=== PATIENT | female | born 1960 | race Caucasian/White ===

== ENCOUNTER 2016-06-14 18:13 | Emergency (ER) | payer OTHER ==
[2016-06-14 18:41] VITALS: BP 125/76; PULSE 78; TEMP 98.8; BMI 27.8
--- NOTE | 2016-06-14 19:20 | PDOC ---
History of Present Illness - General Chief Complaint: Pain Stated Complaint: INJURY/EMPLOYEE Time Seen by Provider: 06/14/16 18:50 History Source: Patient Exam Limitations: No Limitations Past History - Past Medical History Allergies/Adverse Reactions: Allergies Allergy/AdvReac Type Severity Reaction Status Date / Time doxycycline calcium AdvReac Mild Nausea Verified 06/14/16 18:37 [From Vibramycin] doxycycline hyclate AdvReac Mild Nausea Verified 06/14/16 18:37 [From Vibramycin] doxycycline monohydrate AdvReac Mild Nausea Verified 06/14/16 18:37 [From Vibramycin] licorice AdvReac Severe Low Blood Uncoded 06/14/16 18:37 Pressure Home Medications: Ambulatory Orders No Home Medications 0 dose .ROUTE UTDICT 01/29/12 Levofloxacin [Levaquin -] 500 mg PO DAILY #10 tablet 07/29/15 Triamcinolone Acetonide [Nasacort] 55 mcg NS DAILY #10.8 ml 07/29/15 Other medical history: DENIES. - Immunization History Immunization Up to Date: Yes - Psycho/Social/Smoking Cessation Hx Anxiety: No Suicidal Ideation: No Smoking Status: No Smoking History: Never smoked Have you smoked in the past 12 months: No Number of Cigarettes Smoked Daily: 0 Hx Alcohol Use: No Drug/Substance Use Hx: No Substance Use Type: None *Physical Exam - Vital Signs Last Vital Signs Temp Pulse Resp BP Pulse Ox 98.8 F 78 19 125/76 97 06/14/16 18:37 06/14/16 18:37 06/14/16 18:37 06/14/16 18:37 06/14/16 18:37 ED Treatment Course - RADIOLOGY Radiology Studies Ordered: Category Date Time Status HAND- LEFT [RAD] Stat Radiology 06/14/16 18:51 Taken *DC/Admit/Observation/Transfer Diagnosis at time of Disposition: Fracture of left hand Qualifiers: Encounter type: initial encounter Fracture type: closed Qualified Code(s): S62.92XA - Unspecified fracture of left wrist and hand, initial encounter for closed fracture - Discharge Dispostion Disposition: HOME Condition at time of disposition: Stable Admit: No - Referrals Referrals: Akila León MD [Primary Care Provider] - Carlos A Jones MD [Staff Physician] - - Patient Instructions Additional Instructions: please see dr jones this week; call for appointment; wear splint
== END 2016-06-14 19:39 | disposition home or self-care (01) ==
LOC: JERFT 18:13
PROC: 2W39X1Z Immobilization of Left Upper Extremity using Splint (ICD-10-PCS; principal; 2016-06-14)
DX: S62.92XA Unspecified fracture of left hand, initial encounter for closed fracture (principal); X58.XXXA Exposure to other specified factors, initial encounter; Y93.9 Activity, unspecified; Y92.238 Other place in hospital as the place of occurrence of the external cause; Y99.0 Civilian activity done for income or pay
CPT/HCPCS: 73130-TC-LT; 99281-25

== ENCOUNTER 2016-07-18 21:46 | Emergency (ER) | payer OTHER ==
[2016-07-18 22:15] VITALS: BP 118/82; PULSE 68; TEMP 97.7; BMI 26.5
[2016-07-18] MEDS ORDERED: IBUPROFEN 400 MG TABLET (FP) PO ONE ×2 (22:25→22:29)
--- NOTE | 2016-07-18 22:27 | PDOC ---
History of Present Illness - General Chief Complaint: Pain, Acute Stated Complaint: L LEG INJURY/EMPLOYEE Time Seen by Provider: 07/18/16 22:15 History Source: Patient - History of Present Illness Occurred: reports: this evening Lower Extremity Pain Location: left: knee Method of Injury: Yes: twisted Past History - Past Medical History Allergies/Adverse Reactions: Allergies Allergy/AdvReac Type Severity Reaction Status Date / Time doxycycline calcium AdvReac Mild Nausea Verified 07/18/16 22:12 [From Vibramycin] doxycycline hyclate AdvReac Mild Nausea Verified 07/18/16 22:12 [From Vibramycin] doxycycline monohydrate AdvReac Mild Nausea Verified 07/18/16 22:12 [From Vibramycin] licorice AdvReac Severe Low Blood Uncoded 07/18/16 22:12 Pressure Home Medications: Ambulatory Orders No Home Medications 0 dose .ROUTE UTDICT 01/29/12 - Immunization History Immunization Up to Date: Yes - Psycho/Social/Smoking Cessation Hx Anxiety: No Suicidal Ideation: No Smoking Status: No Smoking History: Never smoked Have you smoked in the past 12 months: No Number of Cigarettes Smoked Daily: 0 Hx Alcohol Use: No Drug/Substance Use Hx: No Substance Use Type: None Review of Systems - Review of Systems Musculoskeletal: Yes: Joint Pain, Joint Swelling *Physical Exam - Vital Signs Last Vital Signs Temp Pulse Resp BP Pulse Ox 97.7 F 68 16 118/82 98 07/18/16 22:14 07/18/16 22:14 07/18/16 22:14 07/18/16 22:14 07/18/16 22:14 - Physical Exam General Appearance: Yes: Appropriately Dressed. 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 Has been ambulating with limp since. Denies any fall. Patient well-appearing and stable with minimal swelling to left knee diffusely with tenderness to palpation to medial aspect of knee. Most likely soft tissue injury. Pain control and Gurvinder wrap in ED. DC to continue taking over-the- counter medication as needed for pain *DC/Admit/Observation/Transfer Diagnosis at time of Disposition: Knee sprain Qualifiers: Encounter type: initial encounter Involved ligament of knee: unspecified ligament Laterality: left Qualified Code(s): S83.92XA - Sprain of unspecified site of left knee, initial encounter - Discharge Dispostion Disposition: HOME Condition at time of disposition: Good - Patient Instructions Printed Discharge Instructions: Knee Sprain Additional Instructions: Continue taking Motrin as needed for pain
== END 2016-07-18 22:32 | disposition home or self-care (01) ==
LOC: JERFT 21:46
DX: S83.8X2A Sprain of other specified parts of left knee, initial encounter (principal); X50.1XXA Overexertion from prolonged static or awkward postures, initial encounter; Y93.89 Activity, other specified; Y92.238 Other place in hospital as the place of occurrence of the external cause; Y99.0 Civilian activity done for income or pay
CPT/HCPCS: 99281-25

== ENCOUNTER 2017-05-29 22:07 | Emergency (ER) | payer OTHER ==
[2017-05-29] MEDS ORDERED: IBUPROFEN 400 MG TABLET (FP) PO ONE (22:49)
--- NOTE | 2017-05-29 22:57 | PDOC ---
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 There was no head injury, no LOC Occurred: reports: this evening Severity: reports: moderate Pain Location: reports: lower extremity (left knee, ) Method of Injury: Yes: direct blow, fall Modifying Factors: improves with: None, cold therapy Loss of Consciousness: no loss of consciousness Past History - Travel Traveled outside of the country in the last 30 days: No Close contact w/someone who was outside of country & ill: No - Past Medical History Allergies/Adverse Reactions: Allergies Allergy/AdvReac Type Severity Reaction Status Date / Time doxycycline calcium AdvReac Mild Nausea Verified 07/18/16 22:12 [From Vibramycin] doxycycline hyclate AdvReac Mild Nausea Verified 07/18/16 22:12 [From Vibramycin] doxycycline monohydrate AdvReac Mild Nausea Verified 07/18/16 22:12 [From Vibramycin] licorice AdvReac Severe Low Blood Uncoded 07/18/16 22:12 Pressure Home Medications: Ambulatory Orders Ibuprofen 400 mg PO Q6H PRN #30 tablet 05/29/17 - Immunization History Immunization Up to Date: Yes - Suicide/Smoking/Psychosocial Hx Smoking Status: No Smoking History: Never smoked Have you smoked in the past 12 months: No Number of Cigarettes Smoked Daily: 0 Hx Alcohol Use: No Drug/Substance Use Hx: No Substance Use Type: None Review of Systems - Review of Systems Able to Perform ROS?: Yes Is the patient limited [place]ar[place]uan proficient: Yes Constitutional: Yes: Symptoms Reported, See HPI, Malaise ABD/GI: Yes: Symptoms Reported : No: Symptoms Reported Musculoskeletal: Yes: Symptoms Reported, See HPI, Joint Pain (LEFT KNEE medial aspect ) Integumentary: Yes: Symptoms Reported, See HPI All Other Systems: Reviewed and Negative *Physical Exam - Physical Exam General Appearance: Yes: Nourished, Appropriately Dressed, Apparent Distress, Mild Distress HEENT: positive: CASTRO, Normal ENT Inspection, TMs Normal, Pharynx Normal Neck: positive: Supple Respiratory/Chest: positive: Normal Breath Sounds Gastrointestinal/Abdominal: positive: Tender, Soft Musculoskeletal: positive: Normal Inspection. negative: Decreased Range of Motion, Vertebral Tenderness Extremity: positive: Normal Capillary Refill, Normal Range of Motion ( tenderness to medial aspect ), Tender, Other (tenderness to the plantar aspect or right foot, full range of motion full range of motion to toes, ambulatory without unsteadiness or limp. Left knee with no swelling, crepitus or step-offs , has full range of motion at knee joint. With mild reproduced tenderness along the medial collateral ligament insertion at inferior border. Patella is mobile without crepitus or step-offs, and neurovascular intact distal to the knee. ). negative: Swelling Integumentary: positive: Normal Color, Dry, Warm. negative: Swelling (right shoulder without tenderness along clavicle or scapula mild tenderness at the soft tissue of upper deltoid and lateral trapezius areas. No bruising swelling or ecchymoses noted. Range of motion is primarily intact with some tenderness with full abduction and forward flexion. Neurovascular intact to hand), Ecchymosis, Bruising Neurologic: positive: iridologist II-XII NML intact, Fully Oriented, Alert, Normal Mood/ Affect, Normal Response Progress Note - Progress Note Progress Note: Status post fall at work with right foot, right shoulder, and left knee. We'll treat with NSAIDs, Gurvinder wrap to left knee, and follow up with Orth O as needed. *DC/Admit/Observation/Transfer Diagnosis at time of Disposition: Contusion, multiple sites Strain of left knee Qualifiers: Encounter type: initial encounter Qualified Code(s): S86.912A - Strain of unspecified muscle(s) and tendon(s) at lower leg level, left leg, initial encounter - Discharge Dispostion Disposition: HOME Condition at time of disposition: Stable Admit: No - Referrals - Patient Instructions Printed Discharge Instructions: DI for Contusion Additional Instructions: Rest, ice to area on and off for 15 minutes 4-6 times a day Avoid heavy lifting or exercise until pain and swelling is resolved or until further directed Keep area highly elevated to reduce swelling Use splints/Gurvinder wrap as directed Followup with orthopedist in one to 2 days if not improving, if significantly improved may wait one week for followup with orthopedist May use ibuprofen 2-200 mg tablets every 6 hours as needed for pain - Post Discharge Activity
[2017-05-29 23:11] VITALS: BP 110/76; PULSE 74; TEMP 98.5; BMI 25.6
== END 2017-05-30 02:29 | disposition home or self-care (01) ==
LOC: JERFT 22:07
DX: S86.812A Strain of other muscle(s) and tendon(s) at lower leg level, left leg, initial encounter (principal); S40.011A Contusion of right shoulder, initial encounter; S90.31XA Contusion of right foot, initial encounter; W18.09XA Striking against other object with subsequent fall, initial encounter; Y93.89 Activity, other specified; Y92.238 Other place in hospital as the place of occurrence of the external cause; Y99.0 Civilian activity done for income or pay
CPT/HCPCS: 99281-25

== ENCOUNTER 2017-06-17 16:25 | Emergency (ER) | payer OTHER ==
[2017-06-17 16:43] VITALS: BP 144/82; PULSE 94; TEMP 97.8
[2017-06-17] MEDS ORDERED: SODIUM CHLORIDE 1,000 ML IV ONE (16:56)
--- NOTE | 2017-06-17 16:56 | PDOC ---
History of Present Illness - General History Source: Patient Exam Limitations: No Limitations - History of Present Illness Initial Comments: 06/17/17 17:07 The patient is a 56 year old female, with no significant past medical history, who presents to the emergency department with lightheadedness, dizziness and a pre-syncopal episode earlier today while driving. Upon arrival the patients HR was 120 BMP. She denies any recent head injury or syncopal episode. She denies any recent illness. The patient is able to ambulate but notes that it is difficult for her to walk. The patient denies chest pain, shortness of breath, fever, chills, nausea, vomit , diarrhea and constipation. Denies dysuria, frequency, urgency and hematuria. Allergies: Vibramycin, licorice Past surgical history: None reported Social history: No alcohol, tobacco or drug use reported <Harish Hicks - Last Filed: 06/17/17 17:07> <Mis Vu - Last Filed: 06/17/17 22:51> - General Chief Complaint: Lightheaded Stated Complaint: DIZZINESS Time Seen by Provider: 06/17/17 16:55 Past History <Hraish Hicks - Last Filed: 06/17/17 17:07> - Past Medical History COPD: No - Immunization History Immunization Up to Date: Yes - Suicide/Smoking/Psychosocial Hx Smoking Status: No Smoking History: Never smoked Have you smoked in the past 12 months: No Number of Cigarettes Smoked Daily: 0 Information on smoking cessation initiated: No Hx Alcohol Use: No Drug/Substance Use Hx: No Substance Use Type: None <Mis Vu - Last Filed: 06/17/17 22:51> - Past Medical History Allergies/Adverse Reactions: Allergies Allergy/AdvReac Type Severity Reaction Status Date / Time doxycycline calcium AdvReac Mild Nausea Verified 06/17/17 16:36 [From Vibramycin] doxycycline hyclate AdvReac Mild Nausea Verified 06/17/17 16:36 [From Vibramycin] doxycycline monohydrate AdvReac Mild Nausea Verified 06/17/17 16:36 [From Vibramycin] licorice AdvReac Severe Low Blood Uncoded 06/17/17 16:36 Pressure Home Medications: Ambulatory Orders Ibuprofen [Motrin -] 600 mg PO PRN PRN 06/17/17 Meclizine HCl [Antivert -] 25 mg PO QID PRN #10 tablet 06/17/17 Neuro Specific PMHX - Complaint Specific PMHX Glaucoma: No Herniated Disk: No Laminectomy: No Migraine: No Multiple Sclerosis: No TIA: No <Mis Vu - Last Filed: 06/17/17 22:51> Review of Systems - Review of Systems Able to Perform ROS?: Yes Comments:: 06/17/17 17:11 GENERAL/CONSTITUTIONAL: No fever or chills. No weakness. HEAD, EYES, EARS, NOSE AND THROAT: No change in vision. No ear pain or discharge. No sore throat.- CARDIOVASCULAR: (+) Lightheadedness. No chest pain or shortness of breath RESPIRATORY: No cough, wheezing, or hemoptysis. GASTROINTESTINAL: No nausea, vomiting, diarrhea or constipation. GENITOURINARY: No dysuria, frequency, or change in urination. MUSCULOSKELETAL: No joint or muscle swelling or pain. No neck or back pain. SKIN: No rash NEUROLOGIC: (+) Dizziness. No headache, loss of consciousness, or change in strength/sensation. ENDOCRINE: No increased thirst. No abnormal weight change HEMATOLOGIC/LYMPHATIC: No anemia, easy bleeding, or history of blood clots. ALLERGIC/IMMUNOLOGIC: No hives or skin allergy. <Harish Hicks - Last Filed: 06/17/17 17:07> *Physical Exam - Vital Signs Last Vital Signs Temp Pulse Resp BP Pulse Ox 97.8 F 94 H 20 144/82 100 06/17/17 16:36 06/17/17 16:36 06/17/17 16:36 06/17/17 16:36 06/17/17 16:36 - Physical Exam Comments: 06/17/17 17:11 GENERAL: Awake, alert, and fully oriented, in no acute distress HEAD: No signs of trauma, normocephalic, atraumatic EYES: PERRLA, EOMI, sclera anicteric, conjunctiva clear ENT: Auricles normal inspection, hearing grossly normal, nares patent, oropharynx clear without exudates. Moist mucosa NECK: Normal ROM, supple, no lymphadenopathy, JVD, or masses LUNGS: No distress, speaks full sentences, clear to auscultation bilaterally HEART: Regular rate and rhythm, normal S1 and S2, no murmurs, rubs or gallops, peripheral pulses normal and equal bilaterally. ABDOMEN: Soft, nontender, normoactive bowel sounds. No guarding, no rebound. No masses EXTREMITIES : Normal inspection, Normal range of motion, no edema. No clubbing or cyanosis. NEUROLOGICAL: Cranial nerves II through XII grossly intact. Normal speech. (+) Ambulatory but difficult to walk. No focal sensorimotor deficits SKIN: Warm, Dry, normal turgor, no rashes or lesions noted <Harish Hicks - Last Filed: 06/17/17 17:07> - Vital Signs Last Vital Signs Temp Pulse Resp BP Pulse Ox 97.8 F 94 H 20 144/82 100 06/17/17 16:36 06/17/17 16:36 06/17/17 16:36 06/17/17 16:36 06/17/17 16:36 <Mis Vu - Last Filed: 06/17/17 22:51> ED Treatment Course - ADDITIONAL ORDERS Additional order review: Laboratory Results 06/17/17 16:47 POC Glucometer [id number] 06/17/17 16:47 POC Glucometer [id number] <Harish Hicks - Last Filed: 06/17/17 17:07> - LABORATORY CBC & Chemistry Diagram: 06/17/17 17:06 06/17/17 17:06 <Mis Vu - Last Filed: 06/17/17 22:51> Medical Decision Making - Medical Decision Making 06/17/17 20:01 56-year-old female was dizziness . -When she was walking she started to feel that she couldn't walk straight. She has some mild ataxia. She never had confusion, or facial droop or tingling or numbness or slurred speech ,abd pain or vomiting she did not have any shortness of breath or chest pain. <Mis Vu - Last Filed: 06/17/17 22:51> *DC/Admit/Observation/Transfer - Attestations Scribe Attestion: 06/17/17 17:13 Documentation prepared by Harish Hicks, acting as medical social worker for Mis Vu MD <Harish Hicks - Last Filed: 06/17/17 17:07> <HoraceMisvanesa Smith - Last Filed: 06/17/17 22:51> Diagnosis at time of Disposition: Vertigo - Discharge Dispostion Disposition: HOME Condition at time of disposition: Stable - Prescriptions Prescriptions: Meclizine HCl [Antivert -] 25 mg PO QID PRN #10 tablet PRN Reason: Vertigo - Referrals Referrals: Pipo Mauro MD [Staff Physician] - Robert Thomas MD [Staff Physician] - - Patient Instructions Printed Discharge Instructions: DI for Vertigo Additional Instructions: Please followup with your physician You have be given the names of an ENT specialist and neurologist for further evaluation A prescription for meclizine has been sent to your [facility] pharmacy NIH Stroke Scale - Last Known Well Date/Time & Onset Date Last Known Well: 06/17/17 Time Last Known Well: 15:45 - Initial Evaluation Level of consciousness: Alert Ask patient the month and their age: Answers both correctly Ask patient to open & close eyes; make fist and let go: Obeys both correctly Best gaze (horizontal eye movement): Normal Visual field testing: No visual field loss Facial paresis (Show teeth/raise eyebrows/close eyes tight): Normal symmetrical movement Motor Function: Left Arm: Normal Motor Function: Right Arm: Normal (extends arm 90 (or 45) degrees for 10 seconds without drift Motor Function: Left Leg: Normal (extends leg 30 degrees for 5 seconds without drift) Motor Function: Right Leg: Normal (extends leg 30 degrees for 5 seconds without drift) Limb Ataxia: No ataxia Sensory(Use pinprick test arms,legs,trunk,face/side to side): Normal Best language (Describe picture, name items, read sentences): No Aphasia Dysarthria (read several words): Normal articulation Extinction and Inattention: No abnormality - Total Score NIH Stroke Scale Score: 0 <Mis Vu - Last Filed: 06/17/17 22:51>
[2017-06-17 17:16] LABS: BASO % 0.7 % (0-2.0); EOS % 2.2 % (0-4.5); HEMATOCRIT 44.2 % (32.4-45.2); HEMOGLOBIN 14.5 GM/dL (10.7-15.3); LYMPH % 22.8 % (8-40); MCH 28.5 pg (25.7-33.7); MCHC 32.9 g/dl (32.0-36.0); MEAN CELL VOLUME 86.8 fl (80-96); MEAN PLT VOLUME 8.1 fl (7.5-11.1); MONO % 7.5 % (3.8-10.2); NEUT % 66.8 % (42.8-82.8); PLATELET COUNT 257 K/MM3 (134-434); RBC 5.09 M/mm3 (3.60-5.2); RDW 13.5 % (11.6-15.6); WHITE BLOOD COUNT 6.8 K/mm3 (4.0-10.0)
[2017-06-17] MEDS ORDERED: MECLIZINE HCL 25 MG TABLET (FP) ONE (17:33)
[2017-06-17] MEDS: MECLIZINE HCL 25 MG TABLET (FP) PO ONE ×2 (17:44→17:45)
[2017-06-17 17:53] LABS: ALBUMIN 3.9 g/dl (3.4-5.0); ANION GAP 10 (8-16); BILIRUBIN,TOTAL 0.4 mg/dL (0.2-1.0); BLOOD UREA NITROGEN 11 mg/dL (7-18); CALCIUM 8.6 mg/dL (8.5-10.1); CHLORIDE 105 mmol/L (98-107); CO2 25 mmol/L (21-32); CREATININE 0.7 mg/dL (0.55-1.02); GLUCOSE,RANDOM 124 mg/dL (74-106); POTASSIUM 4.4 mmol/L (3.5-5.1); SGOT/AST 17 U/L (15-37); SGPT/ALT 35 U/L (12-78); SODIUM 140 mmol/L (136-145); TOT PROT 7.2 g/dl (6.4-8.2)
[2017-06-17 17:55] LABS: ALK PHOS 93 U/L (45-117)
[2017-06-17 18:11] LABS: PROTHROMBIN TIME (PATIENT) 11.3 SEC (9.98-11.88)
[2017-06-17 20:42] LABS: URINE APPEARANCE CLEAR; URINE BILIRUBIN NEGATIVE (NEGATIVE); URINE BLOOD NEGATIVE (NEGATIVE); URINE COLOR COLORLESS; URINE GLUCOSE (UA) NEGATIVE (NEGATIVE); URINE KETONE NEGATIVE (NEGATIVE); URINE LEUK ESTERASE NEGATIVE (NEGATIVE); URINE NITRITE NEGATIVE (NEGATIVE); URINE PROTEIN NEGATIVE (NEGATIVE); URINE UROBILINOGEN NEGATIVE mg/dL (0.2-1.0)
[2017-06-18] MEDS ORDERED: IBUPROFEN 600 MG TABLET (FP) PO ONE (01:13)
--- NOTE | 2017-06-18 11:30 | EKG ---
Test Reason : Blood Pressure : / mmHG Vent. Rate : 075 BPM Atrial Rate : 075 BPM P-R Int : 158 ms QRS Dur : 070 ms QT Int : 364 ms P-R-T Axes : 038 009 015 degrees QTc Int : 406 ms NORMAL SINUS RHYTHM WITH SINUS ARRHYTHMIA MINIMAL VOLTAGE CRITERIA FOR LVH, MAY BE NORMAL VARIANT BORDERLINE ECG NO PREVIOUS ECGS AVAILABLE Confirmed by MD Charles, Micheal ([id number]) on 06/18/2017 11:30:07 AM Referred By: Confirmed By:Micheal Soto MD
== END 2017-06-17 23:13 | disposition home or self-care (01) ==
LOC: JER 16:25
PROC: 3E0337Z Introduction of Electrolytic and Water Balance Substance into Peripheral Vein, Percutaneous Approach (ICD-10-PCS; principal; 2017-06-17)
DX: R42 Dizziness and giddiness (principal); R26.0 Ataxic gait
CPT/HCPCS: 36415; 70450-TC; 71045-TC-FY; 80053; 81003; 82550; 82962; 84484; 85025; 85610; 86850; 86900; 86901; 93005; 93010; 99284-25

== ENCOUNTER 2019-02-11 16:16 | Emergency (ER) | payer OTHER ==
[2019-02-11 16:22] VITALS: BP 125/72; PULSE 78; TEMP 98; BMI 26.5
--- NOTE | 2019-02-11 16:24 | PDOC ---
Rapid Medical Evaluation Chief Complaint: Injury Time Seen by Provider: 02/11/19 16:22 Medical Evaluation: Allergies Allergy/AdvReac Type Severity Reaction Status Date / Time doxycycline calcium AdvReac Mild Nausea Verified 02/11/19 16:22 [From Vibramycin] doxycycline hyclate AdvReac Mild Nausea Verified 02/11/19 16:22 [From Vibramycin] doxycycline monohydrate AdvReac Mild Nausea Verified 02/11/19 16:22 [From Vibramycin] licorice AdvReac Severe Low Blood Uncoded 02/11/19 16:22 Pressure Vital Signs Temp Pulse Resp BP Pulse Ox 98 F 78 17 125/72 99 02/11/19 16:20 02/11/19 16:20 02/11/19 16:20 02/11/19 16:20 02/11/19 16:20 02/11/19 16:26 Pt c/o: tripped and fell landing on kleft shoulder and knee, now with abrasion to left knee and pain to shoulder Pt on brief exam: superficial abrasion to left knee, FROM noted, ambulatory Pt ordered for: shoulder xray Pt to proceed to the ED Discharge Disposition - Diagnosis Injury - Referrals - Patient Instructions - Post Discharge Activity
--- NOTE | 2019-02-11 17:23 | PDOC ---
History of Present Illness - General Chief Complaint: Injury Stated Complaint: FALL/LEFT SHOULDER/BILATERAL KNEE/PAIN Time Seen by Provider: 02/11/19 16:22 - History of Present Illness Initial Comments: 02/11/19 17:20 58-year-old female without comorbidities presents for evaluation after a fall. She complains of left shoulder pain and left knee pain. She mechanically fell tripping over a curb landing on her left shoulder and left knee. She did not hit her head. No post injury nausea, vomiting, visual changes or headaches. No prior problems with the left knee and left shoulder. Past History - Past Medical History Allergies/Adverse Reactions: Allergies Allergy/AdvReac Type Severity Reaction Status Date / Time doxycycline calcium AdvReac Mild Nausea Verified 02/11/19 16:22 [From Vibramycin] doxycycline hyclate AdvReac Mild Nausea Verified 02/11/19 16:22 [From Vibramycin] doxycycline monohydrate AdvReac Mild Nausea Verified 02/11/19 16:22 [From Vibramycin] licorice AdvReac Severe Low Blood Uncoded 02/11/19 16:22 Pressure Home Medications: Ambulatory Orders NK [No Known Home Medication] 12/04/17 COPD: No - Immunization History Immunization Up to Date: Yes - Psycho Social/Smoking Cessation Hx Smoking Status: No Smoking History: Never smoked Have you smoked in the past 12 months: No Number of Cigarettes Smoked Daily: 0 Information on smoking cessation initiated: No Hx Alcohol Use: No Drug/Substance Use Hx: No Substance Use Type: None Review of Systems - Review of Systems Musculoskeletal: Yes: Joint Pain *Physical Exam - Vital Signs Last Vital Signs Temp Pulse Resp BP Pulse Ox 98 F 78 17 125/72 99 02/11/19 16:20 02/11/19 16:20 02/11/19 16:20 02/11/19 16:20 02/11/19 16:20 - Physical Exam Comments: 02/11/19 17:21 Left shoulder range of motion is full with discomfort at terminal range of external rotation and abduction. 3 out of 5 supraspinatus isolation mildly positive impingement maneuvers. No evidence of instability or gross sensorimotor deficits neurovascular intact Left knee there is a superficial abrasion on the anterior aspect of the left knee full range of motion without instability or medial or lateral joint line tenderness. Thighs and calves are soft and nontender neurovascularly intact. Medical Decision Making - Medical Decision Making 02/11/19 17:21 X-rays of the left shoulder show mild arthritic changes at the AC joint. The humeral head is low riding in the glenoid and not well centered. Given these findings I suspect a rotator cuff tear gentle range of motion exercise discussed follow-up with orthopedic surgery. Discharge - Discharge Information Problems reviewed: Yes Clinical Impression/Diagnosis: Injury, Left shoulder strain, Abrasion, left knee, initial encounter Condition: Stable Disposition: HOME - Admission No - Follow up/Referral Referrals: Akila León MD [Primary Care Provider] - Manuelito Diaz DO [Staff Physician] - - Patient Discharge Instructions Additional Instructions: Tylenol Motrin as directed for pain. Return to the emergency room for worsening symptoms. Please follow-up with orthopedic surgery in 1 to 2 days for further evaluation and treatment options. - Post Discharge Activity
== END 2019-02-11 17:27 | disposition home or self-care (01) ==
LOC: JERFT 16:16
DX: S80.212A Abrasion, left knee, initial encounter (principal); W18.39XA Other fall on same level, initial encounter; Y93.89 Activity, other specified; Y92.89 Other specified places as the place of occurrence of the external cause; S46.912A Strain of unspecified muscle, fascia and tendon at shoulder and upper arm level, left arm, initial encounter; Z88.8 Allergy status to other drugs, medicaments and biological substances
CPT/HCPCS: 73030-TC-LT-FY; 99281-25